=== PATIENT | female | born 1945 | race Caucasian/White ===

== ENCOUNTER → 2016-07-19 | Outpatient (CLI) | payer OTHER ==
--- NOTE | 2016-07-19 13:46 | MAMMOGRAPHY REPORT ---
UNILATERAL LEFT DIGITAL DIAGNOSTIC MAMMOGRAM TOMOSYNTHESIS WITH CAD: 07/19/2016 CLINICAL HISTORY: Follow-up of a grouping of calcifications in the anterior subareolar left breast. TECHNIQUE: Left CC and MLO 2-D digital and tomosynthesis images, spot magnification left CC and ML views were obtained. Current study was also evaluated with a Computer Aided Detection (CAD) system. COMPARISON: Comparison is made to exams dated: 01/14/2016 mammogram, 01/05/2016 mammogram, and 014 mammogram - [facility]. BREAST COMPOSITION: There are scattered areas of fibroglandular density in the left breast. FINDINGS: There are mild vascular calcifications and a stable benign rim calcification within the le ft breast. There is a grouping of coarse heterogeneous microcalcifications in the anterior subareol ar left breast measuring 7 mm in diameter that appears similar comparing to the 01/14/2016 spot magn ification views. The overall number of calcifications in this grouping does not appear significantl y changed. However, the calcifications are increased comparing to the 2015 mammogram and therefore another short interval follow-up exam is recommended to ensure longer stability. No other new suspi cious mass, architectural distortion or new grouping of calcifications is identified in the visualiz ed left breast. IMPRESSION: ACR-BI-RADS CATEGORY 3: PROBABLY BENIGN A 7 mm grouping of coarse heterogeneous microcalcifications in the anterior subareolar left breast h as not significantly changed comparing to the 01/14/2016 spot magnification views. Longer stability is needed and therefore another short interval follow-up diagnostic left mammogram including spot m agnification views is recommended to ensure stability in 6 months. Annual right mammography will be due at that time. These results and recommendations were discussed with the patient at the time of the exam. She tent atively schedule the follow-up appointment prior to leaving our department. Approximately 10% of breast cancers are not detected with mammography. A negative mammographic repor t should not delay biopsy if a clinically suggestive mass is present. Opal Harrison M.D. ay/:07/19/2016 12:23:54 Upper And Bottom Lacer Hand: Josie BANEGAS(Paulie)(Sergio), [facility] letter sent: Follow Up Recommended 3 BI-RADS Code: ACR-BI-RADS Category 3: Probably Benign
== END | disposition home or self-care (01) ==
LOC: C.MAMM 09:25
PROVIDERS: ATTEND Family Medicine
DX: R92.0 Mammographic microcalcification found on diagnostic imaging of breast (principal)

== ENCOUNTER → 2017-01-31 | Outpatient (CLI) | payer OTHER ==
--- NOTE | 2017-01-31 13:09 | MAMMOGRAPHY REPORT ---
BILATERAL DIGITAL DIAGNOSTIC MAMMOGRAM TOMOSYNTHESIS WITH CAD: 01/31/2017 CLINICAL HISTORY: 72-year-old woman presents for follow-up of coarse heterogeneous grouped calcificat ions in the 3:00 to 4:00 anterior left breast. Also due for annual bilateral screening exam. TECHNIQUE: Bilateral breast tomosynthesis in addition to standard 2D mammography was performed. Spot magnification left CC and ML views were also obtained. Current study was also evaluated with a Comp uter Aided Detection (CAD) system. COMPARISON: Comparison is made to exams dated: 07/19/2016 mammogram, 01/14/2016 mammogram, 01/05/2016 ma mmogram, 12/11/2014 mammogram, and 12/05/2013 mammogram - [facility]. BREAST COMPOSITION: There are scattered areas of fibroglandular density in both breasts. FINDINGS: There are mild vascular calcifications in the breast. A few benign round calcifications in the right breast. There is a stable grouping of coarse heterogeneous calcifications in the 3:00 to 4:00 anterior left breast, that demonstrate minimal more coarsening compared to the diagnostic mammog sean performed 07/19/2016. There is definite coarsening comparing to the 01/14/2016 spot magnificatio n views. The coarsening of the calcifications suggests benignity, but given that the calcifications were not present prior to 2014, another follow-up diagnostic mammogram including spot magnification v iews is recommended to ensure longer stability. No new suspicious mass, architectural distortion or cluster of microcalcifications is seen bilaterally. IMPRESSION: ACR-BI-RADS CATEGORY 3: PROBABLY BENIGN 1. There are benign appearing coarse heterogeneous calcifications in the 3:00 to 4:00 anterior left breast, that have demonstrated coarsening on spot magnification views over the past year. Although t hese calcifications are probably benign, another 12 month follow-up diagnostic mammograms including s pot magnification views is recommended to ensure longer stability. 2. Stable mammographic appearance of the right breast, without mammographic evidence of malignancy. These results and recommendations were discussed with the patient at the time of the exam. Approximately 10% of breast cancers are not detected with mammography. A negative mammographic report should not delay biopsy if a clinically suggestive mass is present. Opal Harrison M.D. ay/:01/31/2017 10:35:32 Explosives Handler: Raisa BANEGAS(Paulie)(M), [facility] letter sent: Follow Up Recommended 3 BI-RADS Code: ACR-BI-RADS Category 3: Probably Benign
== END | disposition home or self-care (01) ==
LOC: C.MAMM 08:53
PROVIDERS: ATTEND Family Medicine
DX: R92.2 Inconclusive mammogram (principal); R92.1 Mammographic calcification found on diagnostic imaging of breast

== ENCOUNTER 2021-12-23 05:12 | Observation (INO) ==
--- NOTE | 2021-12-14 09:29 | History & Physical Report ---
Date of Service December 14, 2021 Assessment & Plan (1) Left knee DJD: Plan: Postoperative prescriptions for Coumadin and Percocet will be provided at discharge from the hospital. Anticipate discharge to home with home health services. PDMP was checked and there are no concerning findings. She is aware of the COVID-19 risks associated with surgery. She is currently asymptomatic of any COVID-19 symptoms. She will obtain nasal swab testing 2 days prior to surgery. Preoperative lab work, EKG, and chest x-ray have been ordered. She will obtain new medical clearance from her PCP prior to surgery. History of Present Illness Chief Complaint: Left knee pain Primary Care Provider: Breanna Dupree MD This 76-year-old female presents for her preoperative history and physical. She is scheduled to undergo a left total knee arthroplasty on 12/23/2021. The patient has a longstanding history of left knee pain. Symptoms have been ongoing for over a year. They became acutely worse approximately 3 months ago. The pain is worse with weightbearing. It is affecting her ADLs. She denies any numbness or tingling. Occasional night pain. No catching or locking. No buckling. Preoperative imaging has been obtained. She elects to proceed with surgery in hopes of improving her function. Allergies Allergy/AdvReac Type Severity Reaction Status Date / Time No Known Allergies Allergy Verified 07/08/21 05:26 Home Medications Medication Instructions Recorded Confirmed Type amlodipine 5 mg tablet 5 mg PO QPM 06/16/21 07/08/21 History aspirin 81 mg capsule 81 mg PO QAM 06/16/21 07/08/21 History lisinopril 20 mg tablet 20 mg PO QAM 06/16/21 07/08/21 History metformin 1,000 mg tablet 1,000 mg PO BID 06/16/21 07/08/21 History multivitamin 1 tab PO QAM 06/16/21 07/08/21 History semaglutide 3 mg tablet (Rybelsus) 3 mg PO QAM 06/16/21 07/08/21 History simvastatin 10 mg tablet 10 mg PO PM 06/16/21 07/08/21 History cephalexin 500 mg capsule 500 mg PO Q8H #12 caps 07/08/21 Rx Past Med/Surg History Medical History DM type 2 (diabetes mellitus, type 2) Glucose - well controlled per patient HLD (hyperlipidemia) HTN (hypertension) Osteoarthritis Surgical History History of appendectomy History of arthroscopy of left knee History of arthroscopy of right knee History of cataract surgery History of colonoscopy History of total abdominal hysterectomy and bilateral salpingo-oophorectomy Family History Other Cancer Diabetes Glioblastoma No family history of adverse response to anesthesia Stroke Social History Smoking Status: Never smoker Second Hand Exposure: No; Hx Alcohol Use: No Hx Substance Use: No Preferred Language: Azeri Communication Ability: Effective Road Design Draftsperson Required: No Beliefs That Will Affect Care: None marital status: Current Living Situation: Spouse current occupational status: retired Feels Safe at Home: Yes Assistive Devices: Denture - Upper, Denture - Lower and Glasses Review of Systems Review of Systems: All systems reviewed & are unremarkable except as noted in HPI & below A total of 10 systems were reviewed. Physical Exam Physical Exam: Vitals: Height 154.4 cm, weight 61 kilograms, BMI 25.6, temperature 36.3, BP 142/80, pulse 76, respirations 18, O2 sat 100% on room air. General: Well-developed, well-nourished, elderly white female in no acute distress. Sitting on a bed. Alert and oriented. Skin: Warm and dry with good turgor. No rashes or lesions. No ecchymosis or erythema. No intraarticular effusion. HEENT: Normocephalic, atraumatic. Eyes: PERRLA, EOMI. Nares and oropharynx exams deferred due to COVID precautions. Heart: RRR. No MGR. Lungs: Clear to auscultation bilaterally. No crackles, rhonchi or wheezing. Good air movement. Abdomen: Bowel sounds present x4. Soft, nontender. No organomegaly. No masses. Musculoskeletal: Left knee evaluation reveals no intraarticular effusion. No redness or warmth. She has full terminal extension. Flexion to around 100 degrees. Strength is 5/5 with fair quad tone. Stable collateral ligaments. No defect in the patellar tendon or quadriceps tendon. She has focal pain with palpation over the medial and lateral joint lines with the medial being worst. Ambulating today with an antalgic gait. Neurologic: Gross sensation is intact across the left leg by soft touch. Peripheral pulses are 2+. Results & Data Results & Data ([facility]) Diagnostic Findings Radiographic imaging previously obtained today of the left knee was reviewed by me and read by radiology. She has end-stage DJD with periarticular osteophytes, subchondral sclerosis, and joint space narrowing. Code Status & VTE Plan VTE Prophylaxis Plan VTE Prophylaxis will be ordered: Yes
--- NOTE | 2021-12-15 10:38 | Anesthesiology Consultation ---
Date of Service December 15, 2021 Assessment & Plan (1) Encounter for pre-operative examination: Chart Review Chart Review: Acceptable Risk for Surgery (pending surgeon ordered PCP clearance and preop Covid testing results ) and Patient NOT seen in Pre Admission Testing -Awaiting updated surgeon ordered PCP clearance per surgeon H&P - Check BSG AM DOS Per nursing assessment 12/15/21, patient denies any recent travel. No known COVID infection in the past 90 days. Patient is fully vaccinated for COVID. No known Covid positive exposures or Covid related symptoms. Preop Covid testing scheduled 12/21/21= will await results Right TSA 07/08/21= Done under GA with Grade 1 view with MAC #3. ETT #7.0. Seen by cardiology 06/26/2021= patient seen for preoperative visit for cardiovascular event risk. Seen for abnormal EKG. EKG repeated in the officestill shows anterior infarct. Did recommend echocardiogram for further evaluation.If echocardiogram is normal (show no anterior wall motion abnormality) and I do not think we need any further evaluation. Difficult to assess cardiovascular event risk as cholesterol status is unknown. Patient on statin. Given her age, diabetes and hypertension her cardiovascular risk would probably be substantial but that does not mean she is CAD. Cardio recommends continuing aspirin and statin.If echocardiogram does not show any wall motion abnormalities we will continue medications as prescribed. History Surgery Operation Date: 12/23/21 09:00 Proposed Procedures p Left Total Knee Arthroplasty - Valente Barnes MD Height/Weight Height: 5 ft Weight: 59.421 kg Allergies Allergy/AdvReac Type Severity Reaction Status Date / Time No Known Allergies Allergy Verified 12/15/21 09:55 Medications Home Medications Medication Instructions Recorded Confirmed Last Taken amlodipine 5 mg tablet 5 mg PO QPM 06/16/21 12/15/21 07/07/21 17:00 aspirin 81 mg capsule 81 mg PO QAM 06/16/21 12/15/21 07/01/21 08:00 lisinopril 20 mg tablet 20 mg PO QAM 06/16/21 12/15/21 07/07/21 08:00 metformin 1,000 mg tablet 1,000 mg PO BID 06/16/21 12/15/21 07/07/21 17:00 multivitamin 1 tab PO QAM 06/16/21 12/15/21 07/07/21 08:00 semaglutide 3 mg tablet (Rybelsus) 3 mg PO QAM 06/16/21 12/15/21 07/07/21 08:00 simvastatin 10 mg tablet 10 mg PO PM 06/16/21 12/15/21 07/07/21 17:00 Past Medical History Medical History DM type 2 (diabetes mellitus, type 2) Glucose - well controlled per patient HLD (hyperlipidemia) HTN (hypertension) Osteoarthritis Past Family History Family History Other Cancer Diabetes Glioblastoma No family history of adverse response to anesthesia Stroke Past Surgical History Surgical History History of appendectomy History of arthroscopy of left knee History of arthroscopy of right knee History of cataract surgery bilateral History of colonoscopy History of total abdominal hysterectomy and bilateral salpingo-oophorectomy S/p reverse total shoulder arthroplasty right Social History Smoking Status: Never smoker Do You Dip or Chew Tobacco: No Hx Alcohol Use: No Hx Substance Use: No substance use type: does not use Lab Results Anesthesia Preop Results Results Anesthesia Widget: WBC 5.94 K/ul (4.8-10.8) 12/08/21 Hgb 11.3 g/dl (12.0-16.0) L 12/08/21 Hct 33.9 % (34.1-44.9) L 12/08/21 Plt 284 K/uL (130-400) 12/08/21 Na 141 mmol/L (136-145) 12/08/21 K 4.1 mmol/L (3.5-5.1) 12/08/21 Cl 104 mmol/L (98-107) 12/08/21 CO2 29 mmol/L (21-32) 12/08/21 BUN 19 mg/dl (6-23) 12/08/21 Creat 0.79 mg/dl (0.6-1.2) 12/08/21 Glucose Level 86 mg/dl (70-99(Fasting)) 12/08/21 PT 10.8 Seconds (9.0-12.0) 12/08/21 PTT 26.5 Seconds (21.0-31.0) 12/08/21 INR 1.0 (0.9-1.1) 12/08/21 Urine Color Yellow 12/08/21 Urine Appearance Clear (Clear) 12/08/21 Urine pH 7.5 (4.5-7.5) 12/08/21 Urine Specific Briggs 1.016 (1.000-1.030) 12/08/21 Urine Protein 2+ (Negative) H 12/08/21 Urine Glucose (UA) Negative (Negative) 12/08/21 Urine Ketones Negative (Negative) 12/08/21 Urine Blood Negative (Negative) 12/08/21 Urine Nitrite Negative (Negative) 12/08/21 Urine Bilirubin Negative (Negative) 12/08/21 Urine Urobilinogen Negative (Negative) 12/08/21 Urine Leukocyte Esterase Negative (Negative) 12/08/21 Urine WBC (Auto) 1-5 /hpf (0-5) 12/08/21 Urine RBC (Auto) 5-10 /hpf (0-4) H 12/08/21 Urine Hyaline Casts (Auto) 1-5 /lpf (0-5) 12/08/21 Urine Epithelial Cells (Auto) 20-30 /lpf (0-5) H 12/08/21 Urine Bacteria (Auto) Negative (Negative) 12/08/21 Blood Type O Positive 12/08/21 Antibody Screen NEGATIVE 12/08/21 Testing Laboratory Results Anemia chronic and stable from previous 06/2021 labs 12/08/21= URINE CULTURE: Alpha strep, not enterococcus 60,000 CFU/ml Electrocardiogram Date: 12/08/21 Sinus rhythm with marked sinus arrhythmia, probably sinus node exit [email or web address] Possible anterior infarct (cited on or before June 24, 2021) When compared to EKG from June 24, 2021no significant changes found per cardio. (Pt seen and cleared by cardio prior to 07/08/21 right TSA- tolerated GA without issues) Chest X-Ray Date: 12/08/21 Findings: + NAD Echocardiogram Date: 07/01/21 LV systolic function is normal. EF =55 to 60%. No regional wall motion abnormalities noted. No significant valvular pathology. Grade 1 diastolic dysfunction.
[2021-12-23] MEDS ORDERED: ceFAZolin 2000MG 2,000 MG/15 ML SYR IV SCH (06:00)
[2021-12-23] MEDS ORDERED: LR 500ML BOLUS, THEN 15ML/HR IV SCH (06:00)
[2021-12-23] MEDS ORDERED: ROPIVACAINE 0.5% HCL/PF 150 MG, BUPIVACAINE 0.75% MPF 20 ML, EPINEPHrine 0.15 MG, Ketor... INFIL SCH (06:00)
[2021-12-23] MEDS ORDERED: LR 60ML/HR IV SCH (06:00)
[2021-12-23] MEDS ORDERED: TRANEXAMIC ACID 1,000 MG **IV Pre-op IV SCH (06:00)
[2021-12-23] MEDS ORDERED: BUPIVACAINE 0.5 % 5 MG/1 ML PF 10ML VIAL ONE (06:28)
[2021-12-23] MEDS ORDERED: ROPIVACAINE 0.5% 5 MG/ML 30 ML VIAL ONE (06:28)
--- NOTE | 2021-12-23 06:29 | History & Physical Bridge Note ---
Date of Service December 23, 2021 History & Physical Bridge Note I have examined the patient, reviewed the History & Physical and in the interval since the performance of the History & Physical I have noted the following changes of clinical significance:consent obtained/site verified/covid screen negative. no changes noted
[2021-12-23] MEDS ORDERED: ORTHO JOINT ANESTHETIC ONE (06:34)
[2021-12-23] MEDS ORDERED: MIDAZOLAM HCL 1 MG/ML 2ML VIAL ONE (06:36)
[2021-12-23] MEDS ORDERED: fentaNYL citrate 100 MCG/2 ML VIAL ONE ×3 (06:44→07:40)
[2021-12-23] MEDS ORDERED: ATROPINE SULFATE 0.1 MG/ML 10ML SYR IV PRN (06:46)
[2021-12-23] MEDS ORDERED: ePHEDrine sulfate 50 MG/ML AMP IV PRN (06:46)
[2021-12-23] MEDS ORDERED: fentaNYL citrate 100 MCG/2 ML VIAL IV PRN (06:46)
[2021-12-23] MEDS ORDERED: ONDANSETRON INJ 2 MG/ML 2 ML VIAL IV PRN ×2 (06:46→09:35)
[2021-12-23] MEDS ORDERED: ONDANSETRON INJ 2 MG/ML 2 ML VIAL ONE ×2 (07:40→07:48)
[2021-12-23] MEDS ORDERED: PHENYLEPHRINE 100MCG/ML 5ML SYR ONE (07:40)
[2021-12-23] MEDS ORDERED: DEXAMETHASONE SOD INJ 4 MG/ML VIAL ONE (07:40)
[2021-12-23] MEDS ORDERED: PROPOFOL IV EMULSION 10 MG/ML 20 ML VIAL IV ONE (07:40)
--- NOTE | 2021-12-23 08:25 | Post Operative Brief Note ---
Immediate Post Op Note v1 Date of Surgery December 23, 2021 Pre & Post Diagnosis Operation Date: 12/23/21 07:00 Pre-Op Diagnosis: Left Knee Degeneartive Joint Disease Post-Op Diagnosis: Left Knee Degeneartive Joint Disease I identified the patient and participated in the time-out.: Yes Procedure Operation Date: 12/23/21 07:00 Actual Procedures p Left Total Knee Arthroplasty(Left) - Valente Barnes MD Surgeon Valente Barnes MD Panel Laminator Rubi/Cece Estimated Blood Loss 50 Findings Consistent with Post-Op Diagnosis severe DJD
--- NOTE | 2021-12-23 09:01 | Operative Report (OR) ---
DATE OF PROCEDURE: 12/23/2021. SURGEON: Valente Barnes MD. MUTUEL MACHINE OPERATOR: Mckinley Venegas DO. SECOND MUTUEL MACHINE OPERATOR: Mejia Zhao PA-C. PREOPERATIVE DIAGNOSES: Osteoarthritis with flexion varus deformity, left knee. POSTOPERATIVE DIAGNOSES: Osteoarthritis with flexion varus deformity, left knee. OPERATION PERFORMED: Cemented left total knee replacement. PERIOPERATIVE SITUATION: Medically cleared female with intractable knee pain, has significant osteoa rthritis with varus flexion deformity of her left knee. Wants to proceed with surgical treatment. S he understands risks and consequences. DESCRIPTION OF PROCEDURE: The patient was appropriately identified, site verified, consent verified. Antibiotics confirmed as being given. The left lower extremity was prepped and draped in usual rou km fashion. Tourniquet was inflated to 300 mmHg after exsanguination of the limb with a rubber Esm arch bandage for a total of 49 minutes. Midline exposure was utilized. Parapatellar arthrotomy perf ormed. Synovectomy completed, osteophytes resected. Distal femur entered. Cruciates resected. Tib ia was subluxated, menisci resected. Distal femur resected 14 mm, proximal tibia resected 4 mm, the extension gap was excellent. The femur was sized between a 3 and a 2.5, was measured 3, cut 2.5. Th ere was no notching. The flexion gap was checked, it was excellent. Orthomix was injected posterior ly. The box cut was then made a size 2.5 fit well. The tibia was then subluxated then broached and reamed for a size 2.5 with a 10 mm spacer, the knee was stable in full extension and 90 degrees of fl exion and the patella tracked well. The patella was then resected leaving roughly 14 mm and a 35 but ton trial seated after drill holes made. It tracked well. Orthomix was then injected all about the knee. The implants were then removed. The wound irrigated with Betadine for 3 minutes and irrigated with Pulsavac, and then the permanent cemented into position tibia, femur, and patella in that order . After 12 minutes, the tourniquet deflated. Minor bleeding points controlled with electrocautery. After additional 2 minutes, the knee was then flexed, spacer removed. Minor cement removal required . The wound was irrigated with Betadine Pulsavac, and then closed after the permanent spacer seated, the knee reduced using #2 Vicryl, 2-0 Vicryl and stainless steel clips. Appropriate dressing applie d. The patient was transferred to recovery room in satisfactory condition, having tolerated the proc edure well. ESTIMATED BLOOD LOSS: 50 mL. CRYSTALLOID: Per anesthesia. PATHOLOGY: Pending on bone. DVT PROPHYLAXIS: Per protocol. SUMMARY OF IMPLANTS: Size 2.5 left femur posterior cruciate substituting size 2.5 tibial tray, size 35 patella, 2.5 x 10 mm inserts, 2.5 x 10 mm posterior cruciate stabilizing insert. Two bags of Price cos G cement. Job ID: [id number]
--- NOTE | 2021-12-23 09:32 | Anesthesiology Progress Note ---
Date of Service December 23, 2021 Anesthesia Post Procedure Vital Signs Vital Signs: Temp Pulse Pulse Resp BP Pulse Ox O2 Del Method 12/23/21 09:30 80 16 155/74 H 97 Nasal Cannula 12/23/21 09:15 97.9 F 82 15 148/84 H 95 Nasal Cannula 12/23/21 09:05 77 13 151/82 H 94 Nasal Cannula 12/23/21 08:55 75 12 164/66 H 100 Oxymask 12/23/21 08:45 81 15 156/74 H 100 Oxymask 12/23/21 08:35 97.5 F L 94 H 16 165/95 H 97 Oxymask 12/23/21 05:53 97.9 F 86 18 159/82 H 97 Room Air O2 Flow Rate 12/23/21 09:30 2 12/23/21 09:15 2 12/23/21 09:05 2 12/23/21 08:55 5 12/23/21 08:45 9 12/23/21 08:35 9 12/23/21 05:53 Pain Intensity Left Knee: Pain Intensity: 2 Transfer of Care Handoff Completed per policy Notes Mental Status: alert / awake / arousable and participated in evaluation Patient Amnestic to Procedure: Yes Nausea / Vomiting: adequately controlled Pain: adequately controlled Airway Patency, RR, SpO2: stable & adequate BP & HR: stable & adequate Hydration State: stable & adequate Anesthetic Complications: no major complications apparent and Pt Satisfied with anesthetic care
[2021-12-23] MEDS ORDERED: NALOXONE HCL 0.4 MG/1 ML VIAL/CARP IV PRN (09:35)
[2021-12-23] MEDS ORDERED: SODIUM CHLORIDE 0.9% 1000ML 1,000 ML IV SCH (09:35)
[2021-12-23] MEDS ORDERED: VANCOMYCIN CONSULT ACTIVE PRN (09:35)
[2021-12-23] MEDS ORDERED: diphenhydrAMINE 50 MG/ML VIAL IV PRN (09:35)
[2021-12-23] MEDS ORDERED: MAGNESIUM HYDROXIDE SUSP 30 ML UDC PO PRN (09:35)
[2021-12-23] MEDS ORDERED: ALUMINUM/MAGNESIUM SUSP 30 ML UDC PO PRN (09:35)
[2021-12-23] MEDS ORDERED: bisacodyL 10 MG SUPP PR PRN (09:35)
[2021-12-23] MEDS ORDERED: HYDROmorphone INJ 0.5 MG/0.5 ML SYR IV PRN (09:35)
[2021-12-23] MEDS ORDERED: oxyCODONE HCL IR 5 MG TAB (IMMEDIATE RELEASE) PO PRN (09:35)
[2021-12-23] MEDS ORDERED: METOCLOPRAMIDE HCL INJ 5 MG/ML 2 ML VIAL IV PRN (09:35)
--- NOTE | 2021-12-23 09:35 | XRay Report ---
XR knee LT 1 or 2V routine CLINICAL HISTORY: S/P L TKA TECHNIQUE: 2 views of the left knee were obtained. Comparison: Comparison is made to knee radiographs 12/08/2021 FINDINGS: Patient is status post total knee arthroplasty with expected postsurgical changes including soft tiss ue swelling and subcutaneous emphysema. No periarticular lucency or hardware fracture is seen. IMPRESSION: Expected postoperative appearance status post placement of total knee arthroplasty. ACT 112: Negative or not required by law. Electronically signed by: Doyle Ricci M.D. 12/23/2021 9:34 AM
--- NOTE | 2021-12-23 10:44 | Progress Notes ---
SUBJECTIVE: Postop check status post left total knee replacement. The patient is awake and alert. Denies chest pain, shortness of breath, fever, chills, nausea, vomiting, or headache. OBJECTIVE: Vital signs are stable. She is afebrile. Neurovascular check femoral sciatic nerve is normal. Wound dressing clean, dry and intact. Calf is nontender. Postoperative x-rays look excellent. ASSESSMENT AND PLAN: Doing well status post left total knee replacement. Continue with care pathway . Job ID: [id number]
--- NOTE | 2021-12-23 10:48 | Operative Report ---
Post Operative Report Pre & Post Diagnosis Operation Date: 12/23/21 07:00 Pre-Op Diagnosis: Left Knee Degeneartive Joint Disease Post-Op Diagnosis: Left Knee Degeneartive Joint Disease I identified the patient and participated in the time-out.: Yes Procedure Operation Date: 12/23/21 07:00 Actual Procedures p Left Total Knee Arthroplasty(Left) - Valente Barnes MD Surgeon SHU Barnes MD Irish Moss Operator Rubi/Cece PAC Estimated Blood Loss 50 Findings Consistent with Post-Op Diagnosis see operative report Specimens see operative report Drains none Complications none Disposition Accompanied Patient To Recovery: Yes Indications This 76-year-old female presented to the office with complaints of persisting left knee pain. She had tried conservative care measures without improvement. She elected to proceed with surgical intervention after being educated about potential risks and outcomes. Preoperative imaging was obtained. Description of Procedure Patient was taken to the operating room where she was given general anesthesia. She was prepped and draped in the usual sterile fashion. Please see Dr. Barnes's operative report for specifics of the procedure. I was present for the entire case from initial patient positioning through final wound closure. Assistance was provided in tissue retraction, hemostasis, trial implant placement, final implant placement, and final wound closure. Patient was taken to the recovery room in satisfactory condition. I attest to the content of the Intraoperative Record and any orders documented therein. Any exceptions are noted below.
[2021-12-23] MEDS ORDERED: VANCOMYCIN HCL 1,000 MG in SODIUM CHLORIDE 0.9% 250 ML IV ONE (12:00)
[2021-12-23] MEDS: INSULIN ASPART PER UNIT SC SCH ×3 (12:05→21:13)
--- NOTE | 2021-12-23 12:33 | Discharge Summary (DS) ---
DATE OF ADMISSION: 12/23/2021. POTENTIAL DATE OF DISCHARGE: 12/24/2021. CHIEF COMPLAINT: Left knee pain. HISTORY OF PRESENT ILLNESS: The patient underwent elective left total knee replacement. To date, ho spital course has been uneventful. CHIEF COMPLAINT: Knee pain. PREADMISSION MEDICATIONS: Include amlodipine, aspirin, lisinopril, metformin, multivitamin, Semaglut jose, simvastatin and cephalexin. PAST SURGICAL/PAST MEDICAL HISTORY: Remarkable for diabetes, hypertension, hyperlipidemia, history o f appendectomy, multiple knee surgeries, cataract surgery, colonoscopies. FAMILY HISTORY: Remarkable for cancer, diabetes, glioblastoma and CVA. SOCIAL HISTORY: Reveals she does not smoke. Speaks Bengali. Feels safe at home, has a spouse, has family, wears glasses and dentures. REVIEW OF SYSTEMS: Noncontributory. LABORATORY DATA: Postop x-rays look excellent. ASSESSMENT: Status post left total knee replacement, doing well. Discharge home tomorrow if does we ll overnight. DVT PROPHYLAXIS: Per protocol. Job ID: [id number]
[2021-12-23] MEDS ORDERED: KETOROLAC 30 MG/ML VIAL ONE (13:11)
[2021-12-23] MEDS: KETOROLAC TROMETHAMINE 15 MG/ML VIAL IV SCH ×3 (13:12→23:26)
[2021-12-23] MEDS: ASPIRIN 81 MG ECTAB PO SCH (13:32)
[2021-12-23] MEDS: DOCUSATE SODIUM 100 MG CAP PO SCH ×2 (13:33→21:15)
[2021-12-23] MEDS: ACETAMINOPHEN 500 MG TAB PO SCH ×2 (13:34→21:16)
[2021-12-23] MEDS: lisinopril 20 MG TAB PO SCH (13:34)
[2021-12-23] MEDS: MULTIVITAMIN TAB PO SCH (13:34)
[2021-12-23] MEDS: ORTHO WARFARIN NOMOGRAM SCH (14:45)
[2021-12-23] MEDS ORDERED: TRANEXAMIC ACID / 0.7% NACL 1,000 MG/100 ML BAG IV SCH (15:00)
[2021-12-23] MEDS ORDERED: WARFARIN SOD 5 MG TAB PO SCH (16:00)
[2021-12-23] MEDS: ceFAZolin 2000MG 2,000 MG/15 ML SYR IV SCH ×2 (17:52→23:22)
[2021-12-23] MEDS: FERROUS GLUCONATE 324 MG TAB PO SCH (18:28)
[2021-12-23] MEDS: ASCORBIC ACID 500 MG TAB PO SCH (18:29)
[2021-12-23] MEDS ORDERED: SENNA 8.6 MG TAB PO SCH (21:00)
[2021-12-23] MEDS ORDERED: SIMVASTATIN 10 MG TAB PO SCH (21:00)
[2021-12-23] MEDS ORDERED: amLODIPine BESYLATE 5 MG TAB PO SCH (21:00)
[2021-12-24] MEDS: KETOROLAC TROMETHAMINE 15 MG/ML VIAL IV SCH (05:39)
[2021-12-24] MEDS: ACETAMINOPHEN 500 MG TAB PO SCH ×2 (05:39→13:04)
[2021-12-24 06:23] LABS: Hematocrit (blood only) 27.6 % (34.1-44.9); Hemoglobin 9.1 g/dl (12.0-16.0); Mean Corpuscular Volume 87.9 fL (80.0-100.0); Platelet Count 253 K/uL (130-400); RDW Coefficient of Variation 13.2 % (11.5-14.5); RDW Standard Deviation 42.4 fL (36.4-46.3); Red Blood Count 3.14 M/uL (3.93-5.22); White Blood Count 10.42 K/ul (4.8-10.8)
[2021-12-24 06:28] LABS: INR 1.2 (0.9-1.1)
[2021-12-24 06:46] LABS: BUN Creatinine Ratio 25.8 (10-20); Calcium 8.4 mg/dl (8.5-10.1); Creatinine Clr Calc Pharmacy 38.8 ml/min; Est GFR (African American) 64.8 ml/min; Est GFR (Non-African American) 55.9 ml/min; Potassium 4.1 mmol/L (3.5-5.1)
--- NOTE | 2021-12-24 07:39 | Progress Notes ---
DATE OF SERVICE: 12/24/2021 SUBJECTIVE: Postop check, postoperative day #1, status post left total knee replacement. The patient is doing well. She is up, awake and alert. Denies chest pain, shortness of breath, feve r, chills, nausea, vomiting or headache. OBJECTIVE: Vital signs stable. She is afebrile. Her pulse is in the 60s. She is 93% saturated on room air. Blood pressure is stable. Wound dressing clean, dry and intact. Neurovascular check, femoral and sciatic nerve is normal. Can do an excellent straight leg raise. Ankle pumps. Calves nontender. DATA: Hematocrit stable in the 27.6 range. Her INR is 1.2. ASSESSMENT AND PLAN: Doing well. Discharge home today after PT/OT and dressing change. Follow up i n 2 weeks in the office. Job ID: [id number]
--- NOTE | 2021-12-24 09:03 | Orthopedic Progress Note ---
Date of Service December 24, 2021 Assessment & Plan (1) Status post total knee replacement, left: Plan: POD1 s/p total knee arthroplasty WBAT with walker PT/OT Diet - regular Frequently ice and elevate with blankets stacked under ankle DVT prophylaxis: Coumadin 2mg to begin after dinner this evening (INR this morning 1.1), TEDs Pain control: Tylenol 1000mg q 8hrs, oxycodone 5-10mg q4-6 hrs for moderate pain - will discharge on Percocet Stool softener to prevent constipation Dressing was changed this morning and TEDs applied Discharge home today after PT with home health (Patient set up with [email or web address]) x 2 weeks Follow up as scheduled with [facility] in 2 weeks - 01/07 @ 230 with Mejia Zhao PA-C Admission and Anticipated Discharge Date Admission Date: December 23, 2021 Subjective Pt was seen and examined bedside. POD #1 s/p left total knee arthroplasty with Dr Barnes. Pt was admitted last night for observation. No major events over night. Vitals are stable. Labs unremarkable. X-rays show normal post operative changed. Pt reports they are doing well and pain is controlled. They are tolerating PO intake and voiding adequate amounts. Will be working with PT/OT this morning. Pt denies F/C, N/V/D, SOB, CP. Pt deemed medically stable and ready for discharge after session with PT. Physical Exam Physical Exam: General: Pt laying in hospital bed AA&O, in NAD, calm and cooperative during exam Lower Extremity: Dressing in tact and not saturated. Incisions clean, dry and with minimal drainage and no surrounding erythema, warmth or purulent drainage. Pt has full ROM of ankle and all 5 digits. Pt has 5/5 strength with resisted DF/PF. SLR in tact. Calf supple and non tender. NVI with sensation to light touch distally and good distal pulses present. Lower extremity noted to have good color and temperature with no signs of vascular or lymphatic insufficiency. Dressing changed this morning and TEDs applied Results & Data ([facility]) Vital Signs (Past 12 Hours) Vital Signs Temp Pulse Pulse Resp BP Pulse Ox O2 Del Method 12/24/21 08:22 36.6 C 70 16 117/61 97 Room Air 12/24/21 02:47 36.7 C 65 16 120/54 L 93 12/23/21 21:36 36.5 C 79 93 H 114/63 93 Laboratory Results 12/24/21 12/24/21 12/24/21 Range/Units 08:09 05:57 05:57 WBC (4.8-10.8) K/ul RBC (3.93-5.22) M/uL Hgb (12.0-16.0) g/dl Hct (34.1-44.9) % MCV (80.0-100.0) fL MCH (25.0-34.0) pg MCHC (32.0-36.0) g/dL RDW Std Deviation (36.4-46.3) fL RDW Coeff of Shruthi (11.5-14.5) % Plt Count (130-400) K/uL MPV (9.4-12.3) fL PT 13.0 H (9.0-12.0) Seconds INR 1.2 H (0.9-1.1) Sodium 136 (136-145) mmol/L Potassium 4.1 (3.5-5.1) mmol/L Chloride 103 (98-107) mmol/L Carbon Dioxide 27 (21-32) mmol/L Anion Gap 6 (3-11) BUN 25 H (6-23) mg/dl Creatinine 0.97 (0.6-1.2) mg/dl Est Cr Clr Drug Dosing 38.8 ml/min Est GFR ( Amer) 64.8 ml/min Est GFR (Non-Af Amer) 55.9 ml/min BUN/Creatinine Ratio 25.8 H (10-20) Glucose 127 H (70-99(Fasting)) mg/dl POC Glucose 124 H (70-99) mg/dl Calcium 8.4 L (8.5-10.1) mg/dl 12/24/21 12/23/21 12/23/21 Range/Units 05:57 20:34 16:53 WBC 10.42 (4.8-10.8) K/ul RBC 3.14 L (3.93-5.22) M/uL Hgb 9.1 L (12.0-16.0) g/dl Hct 27.6 L (34.1-44.9) % MCV 87.9 (80.0-100.0) fL MCH 29.0 (25.0-34.0) pg MCHC 33.0 (32.0-36.0) g/dL RDW Std Deviation 42.4 (36.4-46.3) fL RDW Coeff of Shruthi 13.2 (11.5-14.5) % Plt Count 253 (130-400) K/uL MPV 10.0 (9.4-12.3) fL PT (9.0-12.0) Seconds INR (0.9-1.1) Sodium (136-145) mmol/L Potassium (3.5-5.1) mmol/L Chloride (98-107) mmol/L Carbon Dioxide (21-32) mmol/L Anion Gap (3-11) BUN (6-23) mg/dl Creatinine (0.6-1.2) mg/dl Est Cr Clr Drug Dosing ml/min Est GFR ( Amer) ml/min Est GFR (Non-Af Amer) ml/min BUN/Creatinine Ratio (10-20) Glucose (70-99(Fasting)) mg/dl POC Glucose 194 H 207 H (70-99) mg/dl Calcium (8.5-10.1) mg/dl 12/23/21 12/23/21 Range/Units 13:41 11:48 WBC (4.8-10.8) K/ul RBC (3.93-5.22) M/uL Hgb (12.0-16.0) g/dl Hct (34.1-44.9) % MCV (80.0-100.0) fL MCH (25.0-34.0) pg MCHC (32.0-36.0) g/dL RDW Std Deviation (36.4-46.3) fL RDW Coeff of Shruthi (11.5-14.5) % Plt Count (130-400) K/uL MPV (9.4-12.3) fL PT (9.0-12.0) Seconds INR (0.9-1.1) Sodium (136-145) mmol/L Potassium (3.5-5.1) mmol/L Chloride (98-107) mmol/L Carbon Dioxide (21-32) mmol/L Anion Gap (3-11) BUN (6-23) mg/dl Creatinine (0.6-1.2) mg/dl Est Cr Clr Drug Dosing ml/min Est GFR ( Amer) ml/min Est GFR (Non-Af Amer) ml/min BUN/Creatinine Ratio (10-20) Glucose (70-99(Fasting)) mg/dl POC Glucose 186 H 163 H (70-99) mg/dl Calcium (8.5-10.1) mg/dl
[2021-12-24] MEDS: INSULIN ASPART PER UNIT SC SCH ×2 (10:02→12:54)
[2021-12-24] MEDS: ASPIRIN 81 MG ECTAB PO SCH (10:24)
[2021-12-24] MEDS: DOCUSATE SODIUM 100 MG CAP PO SCH (10:24)
[2021-12-24] MEDS: MULTIVITAMIN TAB PO SCH (10:25)
[2021-12-24] MEDS: ASCORBIC ACID 500 MG TAB PO SCH (10:57)
[2021-12-24] MEDS: FERROUS GLUCONATE 324 MG TAB PO SCH (10:57)
[2021-12-24] MEDS: lisinopril 20 MG TAB PO SCH (10:57)
[2021-12-24] MEDS: ORTHO WARFARIN NOMOGRAM SCH (12:47)
[2021-12-24] MEDS ORDERED: WARFARIN SOD 5 MG TAB PO SCH (16:00)
== END 2021-12-24 15:58 | disposition home health service (06) ==
LOC: ASU 05:12 → PACUINP 05:12 → 3E 14:00